=== PATIENT | female | born 1960 | race Two or more races ===

== ENCOUNTER 2025-04-14 14:34 | Outpatient (CLI) | payer OTHER | END 2025-04-14 14:46 | disposition home or self-care (01) | LOC: MAMO-SONO 14:34 | PROVIDERS: ATTEND Surgery | DX: N60.11 Diffuse cystic mastopathy of right breast (principal); N60.12 Diffuse cystic mastopathy of left breast; C50.211 Malignant neoplasm of upper-inner quadrant of right female breast ==

== ENCOUNTER 2025-05-02 06:10 | Day surgery (SDC) | payer OTHER ==
[2025-05-01 11:51] VITALS: BP 145/84
[~2025-05-02] VITALS: Ht 157.5 cm; Wt 61.2 kg
[~2025-05-02 06:10] MED LIST: ANASTROZOLE1 MG PO
[2025-05-02] MEDS ORDERED: CEFAZOLIN SODIUM 1,000 MG VIAL ONE (13:09)
[2025-05-02] MEDS ORDERED: POVIDONE-IODINE 118 ML BOTT TOP ONE (17:53)
== END 2025-05-02 22:50 | disposition home or self-care (01) ==
LOC: CIR.AMB 06:10
PROVIDERS: ATTEND Surgery
DX: C50.211 Malignant neoplasm of upper-inner quadrant of right female breast (principal); R59.0 Localized enlarged lymph nodes